=== PATIENT | female | born 2000 | race African-American/Black ===

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

== ENCOUNTER 2021-10-21 13:26 | Emergency (ER) | payer OTHER ==
[2021-10-21 14:17] VITALS: BP 00/00
== END 2021-10-21 14:17 | disposition left against medical advice (07) ==
LOC: M.ERS 13:26
DX: R51.9 Headache, unspecified (principal); H57.11 Ocular pain, right eye; H57.12 Ocular pain, left eye; Z53.21 Procedure and treatment not carried out due to patient leaving prior to being seen by health care provider

== ENCOUNTER 2021-10-23 12:04 | Emergency (ER) | payer OTHER ==
[~2021-10-23] VITALS: Ht 162.6 cm; Wt 67.6 kg
[2021-10-23 13:44] VITALS: BP 113/89
== END 2021-10-23 13:44 | disposition home or self-care (01) ==
LOC: M.ERS 12:04
DX: U07.1 COVID-19 (principal); J45.909 Unspecified asthma, uncomplicated; Z79.899 Other long term (current) drug therapy